=== PATIENT | male | born 1930 | race Caucasian/White ===

== ENCOUNTER 2017-08-18 08:05 | Emergency (ER) | payer OTHER ==
[~2017-08-18] VITALS: Ht 182.9 cm; Wt 55.8 kg
[~2017-08-18 08:05] MED LIST: CITRATE OF MAG296 ML PO; HYDROCODON-ACE1 EAC7 PO; LOVENOX40 MG/0.4 SC; NORVASC5 MG PO; SENNA PLUS TAB1 EACH PO
[2017-08-18 08:45] LABS: HEMATOCRIT 32.7 % (38.0-50.0); HEMOGLOBIN 11.6 G/DL (12.5-16.6); MCHC 35.5 G/DL (30.0-36.0); MCV 92.9 FL (86-99); PLATELET COUNT 222 K/uL (156-360); RBC DIS.WIDTH-CV 12.9 % (11.8-14.6); RBC DIS.WIDTH-SD 43.7 % (39-53); RED BLOOD COUNT 3.52 M/uL (4.00-5.50); WHITE BLOOD COUNT 13.9 K/uL (4.1-10.2)
[2017-08-18 08:54] LABS: CHLORIDE 103 mEq/L (99-109); POTASSIUM 4.7 mEq/L (3.7-5.4); SODIUM 138 mEq/L (136-147)
[2017-08-18 08:56] LABS: GLUCOSE 110 mg/dL (70-99)
[2017-08-18 09:00] LABS: CREATININE 1.7 mg/dL (0.6-1.3); GFR ESTIMATE (CALCULATED) 41 mL/min/ (58.99-99999); UREA NITROGEN (BUN) 30 mg/dL (9-23)
[2017-08-18 10:44] LABS: APPEARANCE CLEAR ((CLEAR)); BILIRUBIN NEGATIVE; BLOOD SMALL; COLOR YELLOW ((YELLOW)); GLUCOSE (STRIP) NEGATIVE; KETONES NEGATIVE; LEUKOCYTES NEGATIVE; NITRITE NEGATIVE; PROTEIN (STRIP) NEGATIVE; SPECIFIC GRAVITY 1.018 (1.000-1.030)
[2017-08-18 10:53] LABS: BACTERIA NONE SEEN /HPF; EPITHELIAL CELLS RARE /HPF; MUCUS TRACE /LPF; WHITE BLOOD CELLS 0-5 /HPF (0-5)
[2017-08-18] MEDS ORDERED: NORCO 5/3251 TABLET PO (10:59)
[2017-08-18 11:13] VITALS: BP 162/88
== END 2017-08-18 11:26 | disposition home or self-care (01) ==
LOC: EME 08:05
PROVIDERS: Physician Assistant
DX: S32.592A Other specified fracture of left pubis, initial encounter for closed fracture (principal); W18.30XA Fall on same level, unspecified, initial encounter; Z96.642 Presence of left artificial hip joint; I12.9 Hypertensive chronic kidney disease with stage 1 through stage 4 chronic kidney disease, or unspecified chronic kidney disease; N18.3 Chronic kidney disease, stage 3 (moderate)
CPT/HCPCS: 71045; 72100; 73502; 80048; 81003; 85027; 93005; 99281; 99285